=== PATIENT | male | born 1975 | race African-American/Black ===

== ENCOUNTER → 2023-12-03 | Day surgery (SDC) | payer OTHER ==
[~2023-12-03] MED LIST: ALL DAY ALLERGY10 MG PO; AMLODIPINE BESY10 MG PO; BENICAR20 MG PO; DEXMEDETOMIDINE HCL 200 MCG/2 ML VIAL ONE; FEROSUL325 MG PO; GLUCAGON FOR INJ 1 MG VIAL ONE; LIDOCAINE HCL 2% LOCAL INJ 5 ML SDV VIAL INJ ONE; METOCLOPRAMIDE HCL 10 MG/2ML VIAL ONE; METOPROLOL SUCC25 MG PO; PROPOFOL IV EMULSION 10 MG/ML 50 ML VIAL IV ONE; PROTONIX20 MG PO
[2023-12-03] MEDS: LACTATED RINGER'S 1,000 ML ONE (13:21)
[2023-12-03 15:58] VITALS: TEMP 97.4
[2023-12-03 16:20] VITALS: BP 123/85; PULSE 76; RESP 18; O2SAT 97
== END | disposition home or self-care (01) ==
LOC: OR 12:34
PROVIDERS: ATTEND Internal Medicine Gastroenterology
DX: K21.9 Gastro-esophageal reflux disease without esophagitis (principal); D12.2 Benign neoplasm of ascending colon; K29.70 Gastritis, unspecified, without bleeding; K29.80 Duodenitis without bleeding; K31.89 Other diseases of stomach and duodenum; K20.90 Esophagitis, unspecified without bleeding; K44.9 Diaphragmatic hernia without obstruction or gangrene; K57.30 Diverticulosis of large intestine without perforation or abscess without bleeding; K64.8 Other hemorrhoids; D64.9 Anemia, unspecified; I10 Essential (primary) hypertension; E78.5 Hyperlipidemia, unspecified; R06.02 Shortness of breath; G89.29 Other chronic pain; Z01.810 Encounter for preprocedural cardiovascular examination; Z79.899 Other long term (current) drug therapy; Z87.891 Personal history of nicotine dependence
CPT/HCPCS: 43239; 45385; 93005; J2470; J7121; 45378; J1610; J2001; J2765